=== PATIENT | female | born 1955 | race Caucasian/White ===

== ENCOUNTER 2023-08-17 09:00 | Day surgery (SDC) | payer MEDICARE, SELFPAY ==
[2023-08-17] VITALS (10 sets, daily range): BP systolic 114–144; BP diastolic 55–89; PULSE 87–100; RESP 16; TEMP 36.2–36.5; O2SAT 98–100
--- NOTE | ~2023-08-17 | CT_ITS ---
EXAMINATION: CT abdomen pelvis w con DATE: 08/17/2023 11:01 INDICATION: Right lower quadrant abdominal tenderness. TECHNIQUE: Computed tomography (CT) of the abdomen and pelvis was performed with 100 mL Omnipaque 350 intravenous contrast. Automated exposure control and iterative reconstruction technique were employe d. The dose-length product was 202.08 mGy-cm. COMPARISON: None. FINDINGS: The visualized portions of the lung bases demonstrate mild atelectasis. No pleural effusion . The heart size is normal. No pericardial effusion. There is a 7 mm cyst in the liver. The gallbladd er, spleen, pancreas, adrenal glands, and kidneys are normal. The appendix is fluid-filled and dilate d to 11 mm with adjacent fat stranding. There are no pathologically enlarged lymph nodes. There is no free intraperitoneal fluid. There is lumbar dextrocurvature and mild spondylosis. IMPRESSION: 1. Acute appendicitis. Reviewed, dictated and finalized at location E. IMPRESSION: 1. Acute appendicitis.
[2023-08-17 09:21] LABS: Basophils Percent Auto 0.4 % (0.2-1.2); Eosinophils Absolute Auto 0.1 K/mm3 (0-0.3); Eosinophils Percent Auto 0.7 % (0-4.4); Hematocrit 45.3 % (37.0-47.0); Hemoglobin 14.4 g/dL (12.0-15.0); Immature Granulocyte Absolute 0.01 K/mm3 (0.00-0.031); Immature Granulocyte Percent A 0.1 % (0-0.5); Lymphocytes Percent Auto 15.6 % (18.3-44.2); Mean Corpuscular HGB Conc 31.8 g/dl (32-36); Mean Corpuscular Hemoglobin 30.6 pg (26-34); Mean Corpuscular Volume 96.4 fl (80-100); Mean Platelet Volume 9.9 fl (7.4-10.4); Monocytes Absolute Auto 0.6 K/mm3 (0.1-0.6); Monocytes Percent Auto 7.8 % (2.6-8.5); Neutrophils Absolute Auto 5.3 K/mm3 (1.3-6.7); Neutrophils Percent Auto 75.4 % (45.5-73.1); Platelet Count Result 214 k/mm3 (150-375); Red Cell Distribution Width 13.1 % (11.5-14.5); White Blood Count 7.1 K/mm3 (4.5-10.0)
[2023-08-17 09:31] LABS: Alanine Aminotransferase 22 U/L (6-35); Albumin Level 4.1 g/dL (3.5-5.1); Alkaline Phosphatase 57 U/L (38-126); Anion Gap 2 mmol/L (4-12); Aspartate Amino Transferase 30 U/L (14-36); Bilirubin,Total 0.5 mg/dL (0.2-1.3); Blood Urea Nitrogen 23 mg/dL (7-17); Calcium 8.8 mg/dL (8.4-10.2); Carbon Dioxide 31 mmol/L (22-30); Chloride 105 mmol/L (98-107); Estimated CRCL calculation 56 ml/min; Estimated Glomerular Filt Rate > 60; Glucose 113 mg/dL (65-110); Lipase 156 U/L (23-300); Potassium 4.3 mmol/L (3.4-5.0); Sodium 138 mmol/L (137-145)
[2023-08-17 09:32] LABS: Appearance Urine Clear (Clear); Bilirubin Urine Negative (Negative); Blood Urine Negative (Negative); Color Urine Yellow (Yellow); Glucose Urine UA Negative (Negative); Ketones Urine Negative (Negative); Leukocyte Esterase Ur Negative LEU/UL (Negative); Nitrate Urine Negative (Negative); Protein Urine Negative (Negative); Specific Grav Ur 1.026 (1.001-1.035); Urobilinogen Urine 0.2 mg/dL (<2.0); pH Urine 6.5 (5.0-9.0)
[2023-08-17 09:36] LABS: Add Urine Microscopic? NO
--- NOTE | 2023-08-17 10:29 | ED.ABDPAIN ---
HPI - Abdominal Pain General Chief Complaint: Abdominal Pain <SANDEEP Zhang Last Filed: 08/17/23 18:41> Stated Complaint: abdominal pain <SANDEEP Zhang Last Filed: 08/17/23 18:41> Time Seen by Provider: 08/17/23 10:08 <SANDEEP Zhang Last Filed: 08/17/23 18:41> Source: patient <SANDEEP Zhang Last Filed: 08/17/23 18:41> Mode of arrival: ambulatory <SANDEEP Zhang Last Filed: 08/17/23 18:41> Limitations: no limitations <SANDEEP Zhang Last Filed: 08/17/23 18:41> History of Present Illness HPI narrative: This is a 67-year-old female with chief complaint of right lower abdominal pain this started yesterday evening prior to going to bed. Reports that the pain significantly worsened this morning. Reports it is focal in the right lower quadrant and does not really radiate. Endorses in mild nausea but no vomiting. Denies any troubles with bowel movements, urinary symptoms, fevers, chills, chest pain, shortness of breath, cough, back pain, flank pain. No abdominal surgical history <SANDEEP Zhang Last Filed: 08/17/23 18:41> Related Data Allergies/Adverse Reactions: Allergies Allergy/AdvReac Type Severity Reaction Status Date / Time No Known Allergies Allergy Verified 08/17/23 09:01 <SANDEEP Zhang Last Filed: 08/17/23 18:41> Review of Systems Review of Systems: All systems as dictated in HPI <SANDEEP Zhang Last Filed: 08/17/23 18:41> PMFSH Past Medical History Medical History: Medical History Hypertension <SANDEEP Zhang Last Filed: 08/17/23 18:41> Exam Narrative: GENERAL: Well-appearing, well-nourished, and in no acute distress. HEAD: Normocephalic, atraumatic. EYES: PERRLA and EOMI. ENT: Nares clear, no rhinorrhea or epistaxis. Mucous membranes moist. Oropharynx without tonsillar hypertrophy exudate or other lesions. NECK: Supple. No adenopathy or masses. CHEST: No respiratory distress. Clear to auscultation. No wheezes rales or rhonchi HEART: Regular rate and rhythm. No murmur heard. Normal peripheral pulses. ABDOMEN: Right lower quadrant tenderness present. Soft, otherwise nontender, nondistended, normal active bowel sounds. MSK: Normal range of motion. No edema. SKIN: Warm, dry, no rash. NEURO: Alert and oriented x3. No focal deficits. PSYCH: Normal mood and affect. <Esua Ferrera PA-C - Last Filed: 08/17/23 18:41> Course TELECOM NETWORK MANAGER/PA Physician Supervision For this patient encounter, I reviewed the TELECOM NETWORK MANAGER or PA documentation, treatment plan, and medical decision making and had [id number] time with this patient. I performed all aspects of the MDM as documented. <Myron Zhou MD - Last Filed: 08/17/23 18:49> Vital Signs Vital signs: Vital Signs Temperature 97.7 F 08/17/23 09:09 Pulse Rate 88 08/17/23 09:09 Respiratory Rate 16 08/17/23 09:09 Blood Pressure 114/89 08/17/23 09:09 Pulse Oximetry 98 08/17/23 09:09 Oxygen Delivery Room Air 08/17/23 09:09 Temperature 97.2 F L 08/17/23 16:40 Pulse Rate 100 08/17/23 17:49 Respiratory Rate 16 08/17/23 17:49 Blood Pressure 140/75 08/17/23 17:49 Pulse Oximetry 100 08/17/23 17:15 Oxygen Delivery Room Air 08/17/23 17:49 Oxygen Flow Rate 8 08/17/23 16:55 <Esau Ferrera PA-C - Last Filed: 08/17/23 18:41> Vital Signs Temperature 97.7 F 08/17/23 09:09 Pulse Rate 88 08/17/23 09:09 Respiratory Rate 16 08/17/23 09:09 Blood Pressure 114/89 08/17/23 09:09 Pulse Oximetry 98 08/17/23 09:09 Oxygen Delivery Room Air 08/17/23 09:09 Temperature 97.2 F L 08/17/23 16:40 Pulse Rate 100 08/17/23 17:49 Respiratory Rate 16 08/17/23 17:49 Blood Pressure 140/75 08/17/23 17:49 Pulse Oximetry 100 08/17/23 17:15 Oxygen Delivery Room Air 08/17/23 17:49 Oxygen Flow Rate 8 08/17/23 16
[2023-08-17] MEDS: metroNIDAZOLE 500 MG/ISO 100ML 500 MG/100 ML BAG 100 MG IVPB (12:04)
--- NOTE | 2023-08-17 15:54 | WPDANESEPPF ---
Anes - Initial Pre Proc Eval Procedure: Operation Date: 08/17/23 16:00 Proposed Procedures p Laparoscopic Appendectomy - Eve Jones MD Date/Time: 08/17/23 15:54 Surgeon: vEe Jones MD Pre Op Diagnosis: abdominal pain Patient Data Age: 67 Gender: F Height: 1.65 m Weight: 52.2 kg Last Vital Signs Temp 97.7 F 08/17/23 09:09 Pulse 90 08/17/23 13:30 Resp 16 08/17/23 13:30 BP 135/70 08/17/23 13:30 Pulse Ox 98 08/17/23 13:30 O2 Del Method Room Air 08/17/23 09:09 Allergies Allergy/AdvReac Type Severity Reaction Status Date / Time No Known Allergies Allergy Verified 08/17/23 09:01 Laboratory Tests 08/17/23 08/17/23 09:15 09:24 WBC 7.1 K/mm3 (4.5-10.0) RBC 4.70 M/mm3 (4.2-5.4) Hgb 14.4 g/dL (12.0-15.0) Hct 45.3 % (37.0-47.0) MCV 96.4 fl (80-100) MCH 30.6 pg (26-34) MCHC 31.8 L g/dl (32-36) RDW 13.1 % (11.5-14.5) Plt Count 214 k/mm3 (150-375) MPV 9.9 fl (7.4-10.4) Immature Gran % (Auto) 0.1 % (0-0.5) Neut % (Auto) 75.4 H % (45.5-73.1) Lymph % (Auto) 15.6 L % (18.3-44.2) [place] % (Auto) 7.8 % (2.6-8.5) Eos % (Auto) 0.7 % (0-4.4) Baso % (Auto) 0.4 % (0.2-1.2) Lymph # (Auto) 1.10 K/mm3 (0.9-3.2) [place] # (Auto) 0.6 K/mm3 (0.1-0.6) Eos # (Auto) 0.1 K/mm3 (0-0.3) Baso # (Auto) 0.0 K/mm3 (0.0-0.1) Abs Immat Gran (auto) 0.01 K/mm3 (0.00-0.031) Absolute Neuts (auto) 5.3 K/mm3 (1.3-6.7) Absolute Nucleated RBC 0.000 K/mm3 (0.0-0.012) Nucleated RBC % 0.0 % (0.0-0.2) Sodium 138 mmol/L (137-145) Potassium 4.3 mmol/L (3.4-5.0) Chloride 105 mmol/L (98-107) Carbon Dioxide 31 H mmol/L (22-30) Anion Gap 2 L mmol/L (4-12) BUN 23 H mg/dL (7-17) Creatinine 0.70 mg/dL (0.7-1.0) Estim Creat Clear Calc 56 ml/min Estimated GFR > 60 (59 - ) Glucose 113 H mg/dL (65-110) Calcium 8.8 mg/dL (8.4-10.2) Total Bilirubin 0.5 mg/dL (0.2-1.3) AST 30 U/L (14-36) ALT 22 U/L (6-35) Alkaline Phosphatase 57 U/L (38-126) Total Protein 7.0 g/dL (6.3-8.2) Albumin 4.1 g/dL (3.5-5.1) Lipase 156 U/L (23-300) Urine Color Yellow (Yellow) Urine Appearance Clear (Clear) Urine pH 6.5 (5.0-9.0) Ur Specific [place] 1.026 (1.001-1.035) Urine Protein Negative mg/dL (Negative) Urine Glucose (UA) Negative mg/dL (Negative) Urine Ketones Negative mg/dL (Negative) Ur Blood (Man) Negative (Negative) Urine Nitrate Negative (Negative) Urine Bilirubin Negative (Negative) Urine Urobilinogen 0.2 mg/dL (<2.0) Leukocyte Esterase Rfl Negative BEATRIZ/UL (Negative) Patient hx anesthesia problems: none Family hx anesthesia problems: none Results Review: All pre-operative results and documents have been reviewed as part of the pre-operative evaluation. Anes - Eval Final PreProcedure Day of Procedure 08/17/23 15:54 Patient weight: normal Heart: regular rate and rhythm Lungs: clear to auscultation Airway: Mallampati scale class II Neurological: alert and oriented Last oral intake: >/= 8 hours ASA classification: II Emergent: no Anesthetic plan: proceed Anesthesia type and monitoring: general ETT and standard monitoring Results Review: All pre-operative results and documents have been reviewed as part of the pre-operative evaluation. HTN, pt active w exercising daily, no cp or sob. Informed Consent: The patient's anesthetic plan and its attendant risks and benefits were discussed with the patient/family/POA. Questions were solicited and answers provided to the satisfaction of the patient/family/POA.
--- NOTE | 2023-08-17 16:00 | PM.IMHP ---
H&P: HPI History of Present Illness Date/Time: 08/17/23 16:00 Chief Complaint: Acute appendicitis Narrative: The patient is a 67-year-old female presenting to the emergency department complaining of right lower quadrant abdominal pain. The patient reports the pain has been persistent for the last couple of days. The patient reports associated anorexia and nausea. The patient denies previous episodes. Workup, including imaging, is significant for acute uncomplicated appendicitis. Review of Systems Review of Systems: All systems reviewed & are unremarkable except as noted in HPI and below PMFSH Past Medical History Medical History Hypertension Comments PMH - HTN PSH - none SH - no tobacco FH - no CRC, IBD Meds Home Medications and Allergies Allergies Allergy/AdvReac Type Severity Reaction Status Date / Time No Known Allergies Allergy Verified 08/17/23 09:01 Vital Signs Vital Signs - 24 hr 08/17/23 09:09 08/17/23 12:00 08/17/23 13:30 Temperature 36.5 C Pulse Rate 88 90 90 Respiratory Rate 16 16 16 Blood Pressure 114/89 144/85 H 135/70 Pulse Oximetry 98 98 98 Oxygen Delivery Room Air Exam Const: General: cooperative, comfortable and no acute distress HENMT: Head: normal to inspection, normocephalic and atraumatic Eyes: General: appearance normal, both eyes and all related structures Neck: Neck: normal visual inspection, full ROM and no lymphadenopathy Resp: Auscultation: clear to auscultation bilaterally Cardio: Rate: regular rate Rhythm: regular rhythm GI: GI Palp: Yes abdominal tenderness, Yes Soft to palpation, Yes Tenderness to palpation present (GI), Yes Guarding due to palpation present (GI) and No Rigid due to palpation Skin: General skin exam: normal color and no rashes or lesions noted Neuro: General: patient oriented x3 and CN's II-XI intact bilaterally Extrem: General: normal to inspection and full ROM H&P: Results Labs Labs: Short CBC 08/17/23 Range/Units 09:15 WBC 7.1 (4.5-10.0) K/mm3 Hgb 14.4 (12.0-15.0) g/dL Hct 45.3 (37.0-47.0) % Plt Count 214 (150-375) k/mm3 [facility] 08/17/23 09:15 Sodium 138 Potassium 4.3 Chloride 105 Carbon Dioxide 31 H BUN 23 H Creatinine 0.70 Glucose 113 H Calcium 8.8 Liver Function 08/17/23 Range/Units 09:15 Total Bilirubin 0.5 (0.2-1.3) mg/dL AST 30 (14-36) U/L ALT 22 (6-35) U/L Alkaline Phosphatase 57 (38-126) U/L Albumin 4.1 (3.5-5.1) g/dL Urine 08/17/23 Range/Units 09:24 Urine Color Yellow (Yellow) Urine Appearance Clear (Clear) Urine pH 6.5 (5.0-9.0) Ur Specific [place] 1.026 (1.001-1.035) Urine Protein Negative (Negative) mg/dL Urine Glucose (UA) Negative (Negative) mg/dL Imaging CT scan - abdomen: My impression: Acute uncomplicated appendicitis Assessment and Plan Assessment and plan (1) Acute appendicitis: Code(s): K35.80 - Unspecified acute appendicitis Status: Acute Assessment and Plan: OR for urgent appendectomy, NPO, IV antibiotics
--- NOTE | 2023-08-17 16:04 | WPDHPUPDATE1 ---
History and Physical Update Update Date/Time: 08/17/23 16:04 History and Physical has been reviewed, including an updated exam of the patient. There are NO changes in the patient's condition. Risks, benefits, and alternatives have been discussed and questions answered. Patient agrees to proceed with procedure.
[2023-08-17] MEDS: BUPIVACAINE/EPINEPHRINE 0.5% 50 ML VIAL 30 ML INFILTRATE (16:30)
--- NOTE | 2023-08-17 16:34 | W.PM.PROC2 ---
Procedure Note - Detailed Date of Procedure 08/17/23 Pre-op Diagnosis Acute uncomplicated appendicitis Post-op Diagnosis Same Procedure Performed laparoscopic appendectomy Surgeon Eve Jones MD Anesthesia General Indications 67-year-old female with acute appendicitis Findings Acute uncomplicated appendicitis Description of Procedure The patient was taken to the operating room and placed in the supine position. After adequate induction of general anesthesia, the patient was prepped and draped in the normal sterile fashion. A time-out was then done to verify the patient's identity, as well as the procedure being performed. I began by making a 5 mm incision in the infraumbilical region, through this a Veress needle was placed in the peritoneal cavity. CO2 gas was then insufflated and after adequate pneumoperitoneum was achieved the Veress needle was removed. Then placed a 5 mm Optiview trocar under direct visualization into the peritoneal cavity. I then insufflated through this trocar site and the endoscope was placed into the trocar. Under direct visualization, placed 2 further 5 mm suprapubic port as well as an additional 12 mm port in the left lower abdomen. At this point identified the cecum, I retracted the cecum both medially and superiorly allowing me to expose the appendix. The appendix was noted to be dilated and inflamed. The appendix was noted to be very adherent to the right lateral sidewall as well as the ileum. I was able to bluntly dissect the appendix from these adhesions. I then was able to locate the base of the appendix with the cecum. I created a window with the [place] dissector between the appendix itself and the mesoappendix. I then transected the mesoappendix with a white vascular staple load. The Endo-CLARE was then reloaded with a blue staple load and I transected the base of the appendix. Once the specimen was completely detached, an endo-pouch was placed into the 12 mm port site and the specimen was removed through the endo-pouch. The appendiceal specimen will be sent to pathology for further review. I then copiously irrigated the right lower quadrant. Hemostasis was noted at both staple lines no other pathology was seen in this area. I then moved the camera to the suprapubic port to check our its port of entry. No iatrogenic injury or other pathology was noted in the upper abdomen. I then closed the 12 mm port site with a Maximiliano code and 0 Vicryl suture under direct visualization. At this point, the abdomen was desufflated and all ports were removed. All port sites were closed with 4 Monocryl subcuticular suture. Dermabond was placed on all wounds. The patient tolerated the procedure well and was extubated in the operating room postop. She will be sent to the recovery room in stable condition. Estimated Blood Loss 10 Drains No Packing No Pathology Yes Complications No immediate complications Condition Stable Disposition PACU [facility] Billing Surgery - Charge Forward: Surgery Billing
[2023-08-17] MEDS: LACTATED RINGERS 1,000 ML 30 ML IV CONT ×2 (16:40)
[2023-08-17] MEDS: oxyCODONE HCL (*CRX) 5 MG TAB IR PO (17:30)
== END 2023-08-17 18:15 | disposition home or self-care (01) ==
LOC: ANHED 12:04 → ANHSURGERY 12:44
PROVIDERS: Emergency Medicine; Emergency Provider Physician Assistant; Visit Provider Surgery
PROC: 0DTJ4ZZ Resection of Appendix, Percutaneous Endoscopic Approach (ICD-10-PCS; CPT 44970; principal; 2023-08-17 16:00)
DX: K35.32 Acute appendicitis with perforation, localized peritonitis, and gangrene, without abscess (principal)
CPT/HCPCS: 44970; 36415; 74177; 80053; 81003; 83690; 85025; 88304; 96365; 96367; 99285; A9270; J0330; J0696; J1100; J1836; J2405; J2590; J2704; J3010; J7030; J7120; Q9967